=== PATIENT | male | born 1990 | race Caucasian/White ===

== ENCOUNTER 2016-06-14 15:08 | Emergency (ER) | payer OTHER ==
--- NOTE | 2016-06-14 16:23 | ED NURSING NOTES ---
Clinical Report - Nurses [facility] [address] [place] [address] 06/14/2016 15:13 Patient: CARLOS ENRIQUE WESTON TRIAGE Acuity: LEVEL 3. Chief Complaint: ABDOMINAL PAIN and NAUSEA. Alert. No acute distress. SEPSIS SCREEN: Sepsis Screen. Negative (no infection suspected/documented). --15:31 Sarah Gomez R.N. 15:27 06/14/16. BP: 158/94. HR: 87. RR: 18. O2 saturation: 100%. Temp: 97.9 F (oral). Pain level now: 08/22. --15:31 Sarah Gomez R.N. Weight: 72.5 kg stated. Height/Length: 67 inches Per Patient. BMI: 25.1. --15:29 Sarah Gomez R.N. Medications None. --15:28 Sarah Gomez R.N. Medication/allergy information source: the patient. --15:31 Sarah Gomez R.N. Allergies No Known Drug Allergy. --15:28 Sarah Gomez R.N. History Arrived by private vehicle. Historian: patient. Unaccompanied. SOCIAL HX: Never smoker. Regular alcohol use. No drug use. FALL RISK ASSESSMENT: Fall risk assessment completed. No fall risk identified. NUTRITIONAL RISK ASSESSMENT: The nutritional risk assessment revealed no deficiencies. FUNCTIONAL ASSESSMENT: Functional assessment: no impairments noted. LEARNING NEEDS ASSESSMENT: The learning needs assessment revealed no barriers. SKIN INTEGRITY ASSESSMENT: Skin integrity risk assessment completed. No skin integrity risk identified. --15:31 Sarah Gomez R.N. Assessment GENERAL / NEURO / PSYCH: Alert. Oriented X 4. Appears in no acute distress. Patient appears calm and cooperative. RESPIRATORY: Respirations not labored. CVS: Capillary refill less than 2 seconds. GI / : Abdomen soft and nontender. SKIN: Mucous membranes are pink. Skin is warm and dry. --15:31 Sarah Gomez R.N. Interventions ID band on patient. To treatment room. --15:31 Sarah Gomez R.N. PHYSICAL ASSESSMENT 15:06/14/16. Ambulatory to room. GENERAL / NEURO / PSYCH: Alert. Oriented X 4. Appears in no acute distress. HEENT: Mucous membranes are pink. RESPIRATORY: Respirations not labored. CVS: Capillary refill less than 2 seconds. GI / : Abdomen soft and nontender. SKIN: Skin is warm and dry. --15:31 Sarah Gomez R.N. NURSING PROGRESS NOTES 15:06/14/16. Patient gowned. Two patient identifiers checked. Call light placed in reach. Side rails up x 1. Bed placed in lowest position. Brakes of bed on. Patient ready for evaluation- chart flagged and CERTIFIED GENETIC COUNSELOR notified. --15: Sarah Gomez R.N. 16:43 06/14/2016 Zofran ODT (Ondansetron) PO 4 mg given. Allergies verified and confirmed 5 rights. --16:43 Sarah Gomez R.N. DISPOSITION / DISCHARGE Condition at departure: improved. No learning barriers present. Reviewed medication(s) side effects, precautions, dosing and course information. Prescription(s) given to the patient. Work note given. Patient verbalized understanding. Written instructions provided in Estonian. The patient was discharged home. He left the Emergency Department ambulatory. Medication list reviewed and validated. --17:00 Hue Bryant R.N. 16:38 06/14/16. BP: 116/74. HR: 69. RR: 18. O2 saturation: 99%. Temp: deferred. Pain level now: 06/24. 15:27 06/14/16. BP: 158/94. HR: 87. RR: 18. O2 saturation: 100%. Temp: 97.9 F (oral). Pain level now: 08/22. --17:00 Hue Bryant R.N. Locked/Released at 06/14/2016 17:00 by Hue Bryant R.N.
--- NOTE | 2016-06-14 16:23 | ED NURSING NOTES ---
Clinical Report - Nurses [facility] [address] [place] [address] 06/14/2016 15:13 Patient: CARLOS ENRIQUE WESTON TRIAGE Acuity: LEVEL 3. Chief Complaint: ABDOMINAL PAIN and NAUSEA. Alert. No acute distress. SEPSIS SCREEN: Sepsis Screen. Negative (no infection suspected/documented). --15:31 Sarah Gomez R.N. 15:27 06/14/16. BP: 158/94. HR: 87. RR: 18. O2 saturation: 100%. Temp: 97.9 F (oral). Pain level now: 08/22. --15:31 Sarah Gomez R.N. Weight: 72.5 kg stated. Height/Length: 67 inches Per Patient. BMI: 25.1. --15:29 Sarah Gomez R.N. Medications None. --15:28 Sarah Gomez R.N. Medication/allergy information source: the patient. --15:31 Sarah Gomez R.N. Allergies No Known Drug Allergy. --15:28 Sarah Gomez R.N. History Arrived by private vehicle. Historian: patient. Unaccompanied. SOCIAL HX: Never smoker. Regular alcohol use. No drug use. FALL RISK ASSESSMENT: Fall risk assessment completed. No fall risk identified. NUTRITIONAL RISK ASSESSMENT: The nutritional risk assessment revealed no deficiencies. FUNCTIONAL ASSESSMENT: Functional assessment: no impairments noted. LEARNING NEEDS ASSESSMENT: The learning needs assessment revealed no barriers. SKIN INTEGRITY ASSESSMENT: Skin integrity risk assessment completed. No skin integrity risk identified. --15:31 Sarah Gomez R.N. Assessment GENERAL / NEURO / PSYCH: Alert. Oriented X 4. Appears in no acute distress. Patient appears calm and cooperative. RESPIRATORY: Respirations not labored. CVS: Capillary refill less than 2 seconds. GI / : Abdomen soft and nontender. SKIN: Mucous membranes are pink. Skin is warm and dry. --15:31 Sarah Gomez R.N. Interventions ID band on patient. To treatment room. --15:31 Sarah Gomez R.N. PHYSICAL ASSESSMENT 15:06/14/16. Ambulatory to room. GENERAL / NEURO / PSYCH: Alert. Oriented X 4. Appears in no acute distress. HEENT: Mucous membranes are pink. RESPIRATORY: Respirations not labored. CVS: Capillary refill less than 2 seconds. GI / : Abdomen soft and nontender. SKIN: Skin is warm and dry. --15:31 Sarah Gomez R.N. NURSING PROGRESS NOTES 15:06/14/16. Patient gowned. Two patient identifiers checked. Call light placed in reach. Side rails up x 1. Bed placed in lowest position. Brakes of bed on. Patient ready for evaluation- chart flagged and FLUORESCENT SOLUTION MIXER notified. --15: Sarah Gomez R.N. 16:43 06/14/2016 Zofran ODT (Ondansetron) PO 4 mg given. Allergies verified and confirmed 5 rights. --16:43 Sarah Gomez R.N. DISPOSITION / DISCHARGE Condition at departure: improved. No learning barriers present. Reviewed medication(s) side effects, precautions, dosing and course information. Prescription(s) given to the patient. Work note given. Patient verbalized understanding. Written instructions provided in Azeri. The patient was discharged home. He left the Emergency Department ambulatory. Medication list reviewed and validated. --17:00 Hue Bryant R.N. 16:38 06/14/16. BP: 116/74. HR: 69. RR: 18. O2 saturation: 99%. Temp: deferred. Pain level now: 06/24. 15:27 06/14/16. BP: 158/94. HR: 87. RR: 18. O2 saturation: 100%. Temp: 97.9 F (oral). Pain level now: 08/22. --17:00 Hue Bryant R.N. Locked/Released at 06/14/2016 17:00 by Hue Bryant R.N.
--- NOTE | 2016-06-14 16:23 | ED CLINICAL REPORT ---
Clinical Report - Physicians/Mid Levels [facility] [address] [place] [address] 06/14/2016 15:13 Patient: CARLOS ENRIQUE WESTON Time Seen: 15:45. Arrived- By private vehicle. Historian- patient. HISTORY OF PRESENT ILLNESS Chief Complaint: ABDOMINAL PAIN and DIARRHEA and NAUSEA. It is described as burning and it is described as located in the epigastric area and left upper quadrant. This started yesterday and is still present. At its maximum, severity described as moderate. When seen in the E.D., severity described as mild. Modifying factors. Not worsened by anything. Not relieved by anything. The patient has had nausea and loss of appetite. He has had vomiting (yesterday). The vomiting has occurred twice. He has had diarrhea. This has occurred several times. (Pt does note that the night before last, he did drink alcohol heavily, but vomiting resolved yesterday morning.). Similar symptoms previously: Recent medical care: Not recently seen/assessed. REVIEW OF SYSTEMS No constipation, black stools, hematemesis, difficulty with urination or pain with urination. No urinary frequency, bloody stools, fever, headache or sore throat. No blurred vision, chest pain, difficulty breathing, cough or joint pain. No skin rash, chills or back pain. All systems otherwise negative, except as recorded above. PAST HISTORY Problems: no known problems. Additional Surgeries: no known surgeries. Medications: None. Allergies: No Known Drug Allergy. SOCIAL HISTORY Never smoker. Alcohol use. No drug use. ADDITIONAL NOTES The nursing notes have been reviewed. PHYSICAL EXAM Vital Signs: 06/14/2016 15:27 BP: 158/94. HR: 87. RR: 18. O2 saturation: 100%. Temp: 97.9 F. Pain level now: 4/10. Have been reviewed. Appearance: Alert. Oriented X3. No acute distress. Eyes: Pupils equal, round and reactive to light. Eyes normal inspection. ENT: Nose normal. Neck: Normal inspection. Neck supple. CVS: Normal heart rate and rhythm. Heart sounds normal. Pulses normal. Respiratory: No respiratory distress. Breath sounds normal. Abdomen: Soft. Mild tenderness in the left upper quadrant. No guarding or rebound tenderness. Back: Normal inspection. Skin: Skin warm and dry. Normal skin color. No rash. Normal skin turgor. Extremities: Extremities exhibit normal ROM. No lower extremity edema. Neuro: (Grossly oriented.). LABS, X-RAYS, AND EKG Pulse Oximetry: 06/14/2016 15:27 O2 saturation: 100%. (FIO2 - room air). Interpretation: normal. PROGRESS AND PROCEDURES Course of Care: PT was given a dose of ODT Zofran and a work note. I have d/w him that his sx are consistent with a viral gastroenteritis, though his vomiting yesterday morning may have been related to his heavy drinking the night before. No emergent condition identified. Patient counseled in person regarding the patient's stable condition, diagnosis and need for follow-up. Concerns were addressed. Old medical records reviewed. Disposition: Discharged. Condition: stable. CLINICAL IMPRESSION Acute viral gastroenteritis. No volume depletion. INSTRUCTIONS Do not work today. Drink plenty of fluids. Warnings: GENERAL WARNINGS: Return or contact your physician immediately if your condition worsens or changes unexpectedly, if not improving as expected, or if other problems arise. Prescription Medications: Zofran (orally disintegrating tablets) 4 mg: take 1-2 orally every 6 hours as needed for nausea. Dispense fifteen (15). No refill. Substitution is permissible. Follow-up: Follow up with your doctor as needed. Understanding of the discharge instructions verbalized by patient. (Electronically signed by Shantelle Rivera MD 06/14/2016 17:51)
--- NOTE | 2016-06-14 16:23 | ED ORDER SUMMARY ---
..... Patient: CARLOS ENRIQUE WESTON OrderSheet [facility] VisitID: [id number] [address] [place] [address] 25y, M Registration Date/Time: 06/14/2016 ORDER SHEET Weight: 72.5 kg (stated) Allergies: No Known Drug Allergy GENERAL ORDERS: MEDICATION ORDERS: Zofran ODT PO 8 mg (NOW) (16:22 06/14/2016 Jose BOSCH) (Ack 16:42 Rosalie R.N.) (16:43 Elizabeth R.N.) IV FLUIDS: ORDER SHEET NOTES: [Electronically signed by Hue Bryant R.N. (17:00 06/14/2016)] [Electronically signed by Shantelle Rivera MD (17:51 06/14/2016)] [Electronically locked/signed by Hue Bryant R.N. (17:00 06/14/2016)]
--- NOTE | 2016-06-14 16:23 | ED ORDER SUMMARY ---
..... Patient: CARLOS ENRIQUE WESTON OrderSheet [facility] VisitID: [id number] [address] [place] [address] 25y, M Registration Date/Time: 06/14/2016 ORDER SHEET Weight: 72.5 kg (stated) Allergies: No Known Drug Allergy GENERAL ORDERS: MEDICATION ORDERS: Zofran ODT PO 8 mg (NOW) (16:22 06/14/2016 Jose BOSCH) (Ack 16:42 Rosalie R.N.) (16:43 Elizabeth R.N.) IV FLUIDS: ORDER SHEET NOTES: [Electronically signed by Hue Bryant R.N. (17:00 06/14/2016)] [Electronically signed by Shantelle Rivera MD (17:51 06/14/2016)] [Electronically locked/signed by Hue Bryant R.N. (17:00 06/14/2016)]
--- NOTE | 2016-06-14 17:51 | ED MED RECONCILIATION SUMMARY ---
Patient: CARLOS ENRIQUE WESTON Medication Reconciliation Report [facility] VisitID: [id number] [address] [place] [address] 25y, M Registration Date/Time: 06/14/2016 Weight: 72.5 kg Height/Length: 67 in. BMI: 25.1 ALLERGIES: No Known Drug Allergy The patient's Home Medications are listed below: NONE. The source(s) of the original Home Medication information: patient The following Medications were given to the patient in the Emergency Department: Zofran ODT [PO] PO 4 mg, administered: 06/14/2016 4:43:00 PM The following Medications were prescribed to the patient: Zofran (orally disintegrating tablets) 4 mg: take 1-2 orally every 6 hours as needed for nausea. Dispense fifteen (15). No refill. Substitution is permissible. -- Shantelle Rivera MD
--- NOTE | 2016-06-14 17:51 | ED MAR SUMMARY ---
..... Medication Administration Record [facility] [address] [place] [address] Patient: CARLOS ENRIQUE WESTON Visit ID: [id number] 25y, M Weight: 72.5 kg Height/Length: 67 in BMI: 25.1 ALLERGIES: No Known Drug Allergy Given 16:43 06/14/2016 Sarah Gomez R.N. Medication Administered: ZOFRAN ODT [PO] (ONDANSETRON), Dose: 4 mg PO. Medication Ordered: Zofran ODT PO 8 mg (NOW).
--- NOTE | 2016-06-14 17:51 | ED DISCHARGE INSTRUCTIONS ---
Patient: CARLOS ENRIQUE WESTON General Instructions [facility] VisitID: [id number] [place] [address] 25y, M Registration Date/Time: 06/14/2016 Acute viral gastroenteritis. No volume depletion. INSTRUCTIONS Do not work today. Drink plenty of fluids. Warnings: GENERAL WARNINGS: Return or contact your physician immediately if your condition worsens or changes unexpectedly, if not improving as expected, or if other problems arise. Prescription Medications: Zofran (orally disintegrating tablets) 4 mg: take 1-2 orally every 6 hours as needed for nausea. Dispense fifteen (15). No refill. Substitution is permissible. Follow-up: Follow up with your doctor as needed. Understanding of the discharge instructions verbalized by patient. ADDITIONAL INFORMATION Viral Gastroenteritis (6Yr-Adult) Gastroenteritis is another name for thestomach flu.It is most often caused by a virus that affects the stomach and intestinal tract. Symptoms include stomach cramping and fever, vomiting and/or diarrhea, and can last from 2 to 7 days. The danger from repeated vomiting or diarrhea is dehydration. This is the loss of too much water and minerals from the body. When this occurs, body fluids must be replaced. Antibiotics are not effective for this illness, but simple home treatment will be helpful. Home Care If symptoms are severe, rest at home for the next 24 hours. Avoid tobacco, caffeine, and alcohol use, which can worsen symptoms. Acetaminophen (Tylenol) or ibuprofen (Motrin, Advil) may be usedfor fever or pain unless another medication was prescribed. NOTE: If you have chronic liver or kidney disease or ever had a stomach ulcer or GI bleeding, talk with your doctor before using these medicines. Aspirin should never be used in anyone under 18 years of age who is ill with a fever. It may cause severe liver damage. If medicines for diarrhea or vomiting were prescribed, be sure they are takenonly as directed. If vomiting, drink small amounts of clear fluids (such as water, sports drinks, clear sodas) at frequent intervals to prevent dehydration. Start with 1 to 2 tablespoons every 10 minutes. Once vomiting stops, follow these guidelines: During The First 12 To 24 Hours follow the diet below: Beverages: Sport drinks like Gatorade, soft drinks without caffeine; phillip aure, mineral water (plain or flavored), decaffeinated tea and coffee. Soups: Clear broth, consomm and bouillon Desserts: Plain gelatin (Jell-O), Popsicles and fruit juice bars. During The Next 24 Hours you may add the following to the above: Hot cereal, plain toast, bread, rolls, crackers Plain noodles, rice, mashed potatoes, chicken noodle or rice soup Unsweetened canned fruit (avoid pineapple), bananas Limit fat intake to less than 15 grams per day by avoiding margarine, butter, oils, mayonnaise, sauces, gravies, fried foods, peanut butter, meat, poultry, and fish. Limit fiber; avoid raw or cooked vegetables, fresh fruits (except bananas), and bran cereals. Limit caffeine and chocolate. Do not use spices or seasonings except salt. During The Next 24 Hours The patient can gradually resume a normal diet as symptoms lessen. Preventing Spread Hand washing with soap and water is the best way to prevent the spread of viruses. Caregivers should wash their hands before andafter touching the sick person. The sick person, as well as everyone in the family,should wash their hands after using the toilet and before meals. Clean the toilet after each use. People with diarrhea should not prepare food for others. If you are preparing your own foods, wash your hands before and after. Follow Up with your doctor as advised. Call your doctor if you are not improving over the next 2 to 3 days. If a stool (diarrhea) sample was taken, you may call in 2 days (or as directed) for the results. Get Prompt Medical Attention if any of the following occur: Increasing abdominal pain Continued vomiting (unable to keep liquids down) Frequent diarrhea (more than 5 times a day) Blood in vomit or stool (black or red color) Dark urine, reduced urine output, or extreme thirst Weakness, dizziness, fainting Drowsiness, confusion, stiff neck, or seizure Fever of 100.4F (38C) oral or higher, not better with fever medication New rash You have been given the following additional information: Gastroenteritis, Viral (6Y-Adult) Do not work today. (Electronically signed by Shantelle Rivera MD 06/14/2016 17:51)
--- NOTE | 2016-06-14 17:51 | ED MED RECONCILIATION SUMMARY ---
Patient: CARLOS ENRIQUE WESTON Medication Reconciliation Report [facility] VisitID: [id number] [address] [place] [address] 25y, M Registration Date/Time: 06/14/2016 Weight: 72.5 kg Height/Length: 67 in. BMI: 25.1 ALLERGIES: No Known Drug Allergy The patient's Home Medications are listed below: NONE. The source(s) of the original Home Medication information: patient The following Medications were given to the patient in the Emergency Department: Zofran ODT [PO] PO 4 mg, administered: 06/14/2016 4:43:00 PM The following Medications were prescribed to the patient: Zofran (orally disintegrating tablets) 4 mg: take 1-2 orally every 6 hours as needed for nausea. Dispense fifteen (15). No refill. Substitution is permissible. -- Shantelle Rivera MD
--- NOTE | 2016-06-14 17:51 | ED MAR SUMMARY ---
..... Medication Administration Record [facility] [address] [place] [address] Patient: CARLOS ENRIQUE WESTON Visit ID: [id number] 25y, M Weight: 72.5 kg Height/Length: 67 in BMI: 25.1 ALLERGIES: No Known Drug Allergy Given 16:43 06/14/2016 Sarah Gomez R.N. Medication Administered: ZOFRAN ODT [PO] (ONDANSETRON), Dose: 4 mg PO. Medication Ordered: Zofran ODT PO 8 mg (NOW).
== END 2016-06-14 16:47 | disposition home or self-care (01) ==
LOC: ED SRH 15:08
DX: A08.4 Viral intestinal infection, unspecified (principal)